=== PATIENT | female | born 1980 | race Caucasian/White ===

== ENCOUNTER 2016-02-23 10:09 | Outpatient (CLI) | payer SELFPAY ==
[2016-02-23] VITALS (14 sets, daily range): BP systolic 139–183; BP diastolic 80–115
[~2016-02-23] VITALS: Ht 162.6 cm; Wt 118.0 kg
[~2016-02-23 10:09] MED LIST: ACET50TA PO; IBUP80TA PO; LABETALOL 100 MG TAB PO SCH; LEVO125T3 PO; VITAPRTA PO
--- NOTE | 2016-02-26 18:53 | HPE ---
DATE OF ADMISSION: 02/23/2016 HISTORY: 35-year-old 11, para 10 female at 38-4/7 weeks gestation by last menstrual period (LMP) of 05/28/2015, presents after having elevated blood pressures at home for approximately the past week. She has had no care during the , however her has been checking her blood pressures daily at home. For the last week she has been getting diastolics in the range of 100. She denies headaches or blurred vision. OBSTETRICAL HISTORY: 1. January 2001: Vaginal delivery of a 6 pounds 4 ounces female . 2. February 2003: Vaginal delivery of a male, 8 pounds 3 ounces. 3. July 2004: Vaginal delivery of a male, 8 pounds 2 ounces. 4. August 2006: Vaginal delivery of a female, 5 pounds 11 ounces. 5. August 2008: Vaginal delivery of a male, 8 pounds 14 ounces. 6. November 2009: 34-week vaginal delivery of a 6 pounds infant after placental abruption. 7. January 2011: Vaginal delivery of a 5 pounds 13 ounces female , she was diagnosed with hypertension during that . 8. July 2012: Vaginal delivery 6 pounds female infant, was complicated by hypertension. 9. August 2013: Vaginal delivery of a 7 pounds male , labor was complicated by a face presentation. 10. October 2014: Vaginal delivery of a 7 pounds infant, the labor was complicated by hypertension. MEDICAL HISTORY: Hypothyroidism for which she takes Synthroid. SURGICAL HISTORY: Cholecystectomy. ALLERGIES: No known drug allergies. SOCIAL HISTORY: The patient is Rastafari, she is and lives with her family in [place], [place]. She denies cigarettes, alcohol, or drug use. FAMILY HISTORY: Noncontributory. PHYSICAL EXAMINATION: Blood pressure 138/98, pulse 80. She is in no apparent distress. HEAD and NECK: Normal. LUNGS: Clear. HEART: Regular rate and rhythm. ABDOMEN: Nontender, gravid. heart sounds category 1. CERVIX: 3 cm, 70% effaced, -2 station, vertex. EXTREMITIES: Trace edema. Reflexes 1+. Urine is negative for protein. ASSESSMENT: 35-year-old 11, para 10, Rastafari female presents at 38-4/7 weeks gestation with gestational hypertension. Unequivocally, recommended for the patient to stay and get delivered. The patient and her discussed this and refused admission at this time. They are willing to accept antihypertensive medication treatment. The patient understands the risk of hypertension in . They refuse all further treatments, including blood work, at this time. The patient will be started on labetalol 100 mg twice a day. She will continue to have her blood pressure checked at home by her . If blood pressures increase further and labor does not ensue, she will present to the hospital again. The patient understands the significant risks of hypertension in . They have been asked to sign out AGAINST MEDICAL ADVICE.
== END 2016-02-23 13:30 | disposition home or self-care (01) ==
LOC: M LDO 10:09
PROVIDERS: ATTEND Specialist
DX: O13.3 Gestational [pregnancy-induced] hypertension without significant proteinuria, third trimester (principal); O99.283 Endocrine, nutritional and metabolic diseases complicating pregnancy, third trimester; E03.9 Hypothyroidism, unspecified; O09.33 Supervision of pregnancy with insufficient antenatal care, third trimester; Z3A.38 38 weeks gestation of pregnancy

== ENCOUNTER 2016-02-26 14:01 | Outpatient (CLI) | payer SELFPAY ==
[2016-02-26] VITALS (12 sets, daily range): BP systolic 111–143; BP diastolic 59–86
[~2016-02-26] VITALS: Ht 162.6 cm; Wt 120.0 kg
[~2016-02-26 14:01] MED LIST changes: -LABETALOL 100 MG TAB PO SCH
[2016-02-26] MEDS ORDERED: LR 1,000 ML IV SCH (15:34)
[2016-02-26] MEDS ORDERED: LACTATED RINGER'S 1000 ML IV STA (15:34)
[2016-02-26 17:21] LABS: MEAN CORPUSCULAR HEMOGLOBIN 32.6 pg (27.0-33.0); MEAN CORPUSCULAR HGB CONC 34.6 g/dl (32.0-36.5); MEAN CORPUSCULAR VOLUME 94.1 fl (80.0-96.0); RED CELL DISTRIBUTION WIDTH 14.6 % (11.5-14.5); WHITE BLOOD COUNT 7.6 K/mm3 (4.0-10.0)
[2016-02-26 17:46] LABS: ALT/SGPT 26 U/L (12-78); AST/SGOT 35 U/L (15-37); BILIRUBIN,TOTAL 0.4 MG/DL (0.2-1.0); CREATININE FOR GFR 0.66 MG/DL (0.55-1.02); GLOMERULAR FILTRATION RATE > 60.0 (>60); URIC ACID 5.3 MG/DL (2.6-6.0)
--- NOTE | 2016-02-26 17:50 | REP ---
OB ultrasound 02/26/2016: Indication: Possible twin gestation, no care. Date of last menstrual period 05/26/2015. Based on last menstrual period fetus should be 01-cexq-8-day with GRANT 03/01/2016. At this time single intrauterine fetus is noted in a vertex position of 59-qvmj-2-day gestational age GRANT 03/06/16 by ultrasound today. The placenta is anterior grade 3 without previa or abruption. Subjectively the amniotic fluid appears within normal limits. Evaluation of the maternal adnexal and cul-de-sac regions revealed no abnormalities. heart rate 163 beats per minute by M-mode. Amniotic fluid index 10.0 (deepest pocket), biophysical profile score is 8/8. Umbilical artery systolic to diastolic ratio 3.12, with expected range 1.6-2.6, and is elevated. Resistive index is 0.68. Evaluation of the structures are limited due to maternal body habitus, advanced gestational age, and crowding. BPD 9.3 cm = 37 weeks 6 days Head circumference 34.6 = 40 weeks 1 day Abdominal circumference 35.1 = 39 weeks 0 days Femur length 7.5= 38 weeks 2 days Humeral length 6.6 cm= 38 weeks 2 days HC/AC ratio 0.99 ,within normal range. Cephalic index 0.74 ,within normal range. cranium, diaphragm, left-sided stomach and kidneys were visualized. There is suboptimal visualization of facial profile, four-chamber heart, right and left ventricular outflow tract. profile was seen, yet nose and lips were not adequately seen. Impression: Single intrauterine fetus vertex presentation of 94-kctx-6-day gestational age according to today's ultrasound with GRANT 03/06/2016. heart rate 163 beats per minute by M-mode. Biophysical profile score 8/8. Umbilical artery systolic to diastolic ratio of 3.12 which is elevated with expected range 1.6-2.6. Anterior grade three placenta without previa or abruption. Nuchal cord cannot be excluded due to limited visualization and for exam quality due to maternal body habitus, limited scanning windows and advanced gestational age. Please see attached worksheet. Signed by Vi Santana MD 02/26/2016 09:32 P
== END 2016-02-26 19:00 | disposition left against medical advice (07) ==
LOC: M LDO 14:01
PROVIDERS: ATTEND Obstetrics & Gynecology
DX: O13.3 Gestational [pregnancy-induced] hypertension without significant proteinuria, third trimester (principal); O99.283 Endocrine, nutritional and metabolic diseases complicating pregnancy, third trimester; O09.33 Supervision of pregnancy with insufficient antenatal care, third trimester; E03.9 Hypothyroidism, unspecified; Z3A.38 38 weeks gestation of pregnancy

== ENCOUNTER → 2016-07-18 | Outpatient (REF) | payer SELFPAY | LOC: M SFHCLERA 11:59 | PROVIDERS: ATTEND Physician Assistant | DX: E03.9 Hypothyroidism, unspecified (principal) ==

== ENCOUNTER → 2016-10-02 | Outpatient (CLI) | payer SELFPAY ==
--- NOTE | 2016-10-02 11:54 | REP ---
RIGHT FOOT SERIES: Four views of the right foot are performed. There is a transverse fracture at the base of the 5th metatarsal. This appears to be subacute with some mild healing callous formation present. There is not significant displacement . No other acute fracture or dislocation is seen. There is mild posterior and inferior calcaneal spurring. There is mild narrowing and subchondral sclerosis at the first metatarsophalangeal joint. IMPRESSION: Nondisplaced fracture base of 5th metatarsal. This appears to be subacute with some mild healing callous formation present. Signed by George Alejandra MD 10/02/2016 04:43 P
== END ==
LOC: M WUC 11:01
PROVIDERS: ATTEND Physician Assistant
DX: M79.671 Pain in right foot (principal)

== ENCOUNTER → 2016-12-31 | Outpatient (REF) | payer SELFPAY | LOC: M SFHCLERA 09:48 | PROVIDERS: ATTEND Physician Assistant | DX: E03.9 Hypothyroidism, unspecified (principal) ==

== ENCOUNTER → 2017-08-15 | Outpatient (CLI) | payer SELFPAY ==
[2017-08-15 12:55] LABS: HCG, SERUM QUANTITATIVE 373 MIU/ML
== END ==
LOC: M LRY 10:29
DX: O03.9 Complete or unspecified spontaneous abortion without complication (principal)
CPT/HCPCS: 84702

== ENCOUNTER → 2017-12-30 | Outpatient (REF) | payer SELFPAY ==
[2017-12-30 12:31] LABS: FREE T4 0.74 NG/DL (0.76-1.46)
== END ==
LOC: M SFHCLERA 10:15
DX: E03.9 Hypothyroidism, unspecified (principal)